=== PATIENT | male | born 1960 | race Caucasian/White ===

== ENCOUNTER 2023-01-03 06:50 | Day surgery (SDC) | payer OTHER ==
[~2023-01-03] VITALS: Ht 157.5 cm; Wt 93.2 kg
[~2023-01-03 06:50] MED LIST: SODIUM CHLORIDE 0.9% 1,000 ML IV ONE
[2023-01-03] MEDS ORDERED: METF-1211 PO ×2 (07:25)
[2023-01-03] MEDS ORDERED: PRED5SOL PO (07:25)
[2023-01-03] MEDS ORDERED: OMEP20CA12 PO (07:25)
[2023-01-03] MEDS ORDERED: SODIUM CHLORIDE 0.9% 1,000 ML ONE (07:49)
[2023-01-03] MEDS ORDERED: FentaNYL CITRATE PF 100 MCG/2 ML VIAL ONE (08:23)
[2023-01-03] MEDS ORDERED: MIDAZOLAM HCL 2 MG/2 ML VIAL ONE (08:23)
[2023-01-03 08:26] LABS: GLUCOMETER DEV NAME(LOC) SDS.; GLUCOSE,POINT OF CARE 123 MG/DL (70-110)
[2023-01-03 09:36] VITALS: PULSE 73; RESP 25; O2SAT 97
[2023-01-03] MEDS ORDERED: MethylPREDNISolone SOD SUCC 125 MG/2 ML VIAL IVP ONE (09:45)
[2023-01-03] MEDS ORDERED: MethylPREDNISolone SOD SUCC 125 MG/2 ML VIAL ONE (10:13)
[2023-01-03] MEDS ORDERED: BENZOCAINE 20% 50 MCG/SPRAY 57 GM ONE (17:45)
[2023-01-03] MEDS ORDERED: LIDOCAINE 2% 11 ML JELLY ONE (17:45)
[2023-01-03] MEDS ORDERED: ALBUTEROL SULFATE 2.5 MG/0.5 ML NEB SOLUTION NEB ONE (17:45)
[2023-01-03] MEDS ORDERED: LIDOCAINE 4% 50 ML SOLUTION ONE (17:45)
== END 2023-01-03 11:35 | disposition home or self-care (01) ==
LOC: SURGERY 06:50
PROVIDERS: ATTEND Internal Medicine Critical Care Medicine
DX: J38.4 Edema of larynx (principal); B37.0 Candidal stomatitis; J44.9 Chronic obstructive pulmonary disease, unspecified; I10 Essential (primary) hypertension; Z79.899 Other long term (current) drug therapy; Z98.890 Other specified postprocedural states
CPT/HCPCS: 31623; 88112; 82962; 87206; 87101; 87220; 87070; 31624; 94640; 71045; 87015; J3010; J2250; J2930; Q9967; J7030; J7613; Z7610